=== PATIENT | female | born 1990 | race Two or more races ===

== ENCOUNTER 2016-08-30 11:36 | Emergency (ER) | payer MEDICAID ==
[2016-08-30] MEDS ORDERED: ONDANSETRON DISINTEGRATING 4 MG TAB PO ONE (11:49)
[2016-08-30] MEDS ORDERED: NS 1,000 ML IV ONE ×2 (11:56→12:59)
[2016-08-30] MEDS ORDERED: ONDANSETRON 4 MG/2 ML VIAL IVP ONE (12:16)
[2016-08-30 12:17] VITALS: TEMP 97.5
--- NOTE | 2016-08-30 12:17 | EDPHY ---
H & P Time Seen by Provider: 08/30/16 12:14 HPI/ROS: HPI: 25-year-old female presents to urgent care with the chief concern nausea and vomiting that onset suddenly at 10:00 p.m. last night. Just prior to that she developed sensation of room spinning. This is worse when she turns her head or change positions in bed. Reports associated mild headache. Ate questionable chicken at 2:00 p.m.. This caused her boyfriend to have emesis. She denies fever, chills, URI symptoms, shortness of breath, chest pain, abdominal pain, diarrhea, rash, urinary symptoms. No recent trauma. Takes oral contraceptives and rarely has a period. Has no primary care provider. Denies significant personal or family history. ROS:10 point review of systems is negative other than as stated in HPI Past Medical/Surgical History: Denies Social History: Uses occasional marijuana Smoking Status: Never smoked Physical Exam: Temp 36.0, blood pressure 142/108, 93 pulse, 99% on room air General: Awake, alert, mild distress. No acute distress. Head: Normalocephalic. Atraumatic. EENT: PERRLA. EOMI. No pallor or injection. Anicteric. Mild horizontal nystagmus bilaterally. No injection. TMs intact bilaterally with normal landmarks. No rhinnorhea, nasal passages clear. Oropharynx without redness, exudates, or lesions. Tonsils 2+ bilaterally, no exudates. Neck: Supple, nontender. No lymphadenopathy. Full range of motion. No meningismus. Respiratory: Breathing unlabored. Breath sounds equal bilaterally and clear to auscultation. No adventitious sounds. CV: Chest nontender, atraumatic. Heart rate regular. No murmur, distal pulses 2+ bilaterally. Brisk cap refill all extremities. GI: Abdomen soft, nontender. Bowel sounds normoactive and positive x4 quadrants. : No suprapubic tenderness. No CVA or flank tenderness. Neuro: Alert. Oriented x 3. Speech clear. Nonfocal cranial nerves throughout. Sensation intact all extremities. Skin: Skin warm, dry, intact. No rashes, abrasions, or lacerations. Skin turgor normal. Extremities: Full range of motion in all 4 extremities. Strength 5+ all extremities. Constitutional: Initial Vital Signs Temperature (C) 36.4 C 08/30/16 12:12 Heart Rate 114 H 08/30/16 12:12 Respiratory Rate 18 08/30/16 12:12 Blood Pressure 146/106 H 08/30/16 12:12 O2 Sat (%) 98 08/30/16 12:12 O2 Delivery Mode Room Air Allergies/Adverse Reactions: No Known Allergies Allergy (Unverified 08/30/16 12:14) Home Medications: Medication Instructions Recorded Bcp 08/30/16 Meclizine HCl [Meclizine HCl 25 mg 25 mg PO BID #15 tab 08/30/16 (RX,OTC)] Ondansetron Odt [Zofran Odt 4 mg 4 mg PO Q4 PRN #6 tab 08/30/16 (*)] Medical Decision Making ED Course/Re-evaluation: 25-year-old female presents to urgent care with chief concern nausea and vomiting. Onset suddenly at 10:00 p.m. last night. Just prior to onset she developed vertigo. She is afebrile, nontoxic, has no urinary symptoms. IV started. Normal saline given. 4 mg IV Zofran given. 1355: White count 7250. Glucose 135. Negative HCG. Urinalysis shows 1+ blood , negative nitrate, negative esterase, 0-1 WBCs, trace bacteria, 3+ mucus. No evidence of UTI however culture is pending. After 2 L normal saline, 4 mg IV Zofran, 12.5 mg IV Phenergan, nausea significantly improved. Patient reports ongoing mild vertiginous symptoms when she turns her head or her eyes. I have prescribed meclizine, Zofran, and advised her to use Benadryl. I have discussed the Reina Hallpike/Fallon maneuver and referred her to ENT for follow-up , as well as given her referral for primary care she does not have a primary care provider. She understands that if the symptoms do not significantly improve within the next 2-3 days, she should follow up without fail. Differential Diagnosis: Differential diagnosis includes but is not limited to food poisoning, central versus peripheral vertigo, gastroenteritis, dyspepsia, UTI - Data Points Laboratory Results: Laboratory Results 08/30/16 12:23 08/30/16 12:23 08/30/16 12:23 WBC 7.25 10^3/uL (3.80-9.50) RBC 5.48 H 10^6/uL (4.18-5.33) Hgb 17.2 H g/dL (12.6-16.3) Hct 50.3 H % (38.0-47.0) MCV 91.8 fL (81.5-99.8) MCH 31.4 pg (27.9-34.1) MCHC 34.2 g/dL (32.4-36.7) RDW 11.9 % (11.5-15.2) Plt Count 268 10^3/uL (150-400) MPV 10.4 fL (8.7-11.7) Neut % (Auto) 68.7 % (39.3-74.2) Lymph % (Auto) 27.4 % (15.0-45.0) Alexander % (Auto) 3.6 L % (4.5-13.0) Eos % (Auto) 0.1 L % (0.6-7.6) Baso % (Auto) 0.1 L % (0.3-1.7) Nucleat RBC Rel Count 0.0 % (0.0-0.2) Absolute Neuts (auto) 4.97 10^3/uL (1.70-6.50) Absolute Lymphs (auto) 1.99 10^3/uL (1.00-3.00) Absolute Monos (auto) 0.26 L 10^3/uL (0.30-0.80) Absolute Eos (auto) 0.01 L 10^3/uL (0.03-0.40) Absolute Basos (auto) 0.01 L 10^3/uL (0.02-0.10) Absolute Nucleated RBC 0.00 10^3/uL (0-0.01) Immature Gran % 0.1 % (0.0-1.1) Immature Gran # 0.01 10^3/uL (0.00-0.10) Sodium 143 mEq/L (134-144) Potassium 3.9 mEq/L (3.5-5.2) Chloride 102 mEq/L (97-110) Carbon Dioxide 24 mEq/l (22-31) Anion Gap 17 mEq/L (8-16) BUN 14 mg/dL (7-23) Creatinine 0.9 mg/dL (0.6-1.0) Estimated GFR > 60 Glucose 135 H mg/dL (70-100) Calcium 10.2 mg/dL (8.5-10.4) Total Bilirubin 0.9 mg/dL (0.1-1.4) Conjugated Bilirubin 0.3 mg/dL (0.0-0.5) Unconjugated Bilirubin 0.6 mg/dL (0.0-1.1) AST 33 IU/L (14-46) ALT 41 IU/L (9-52) Alkaline Phosphatase 61 IU/L (38-126) Total Protein 8.6 H g/dL (6.3-8.2) Albumin 5.1 H g/dL (3.5-5.0) Lipase 130.0 IU/L (23-300) Beta HCG, Qual NEGATIVE Urine Color YELLOW Urine Appearance CLEAR Urine pH 8.0 H (5.0-7.5) Ur Specific [place] 1.020 (1.002-1.030) Urine Protein 1+ H (NEGATIVE) Urine Ketones 3+ H (NEGATIVE) Urine Blood 1+ H (NEGATIVE) Urine Nitrate NEGATIVE (NEGATIVE) Urine Bilirubin NEGATIVE (NEGATIVE) Urine Urobilinogen 0.2 EU (0.2-1.0) Ur Leukocyte Esterase NEGATIVE (NEGATIVE) Urine RBC 1-3 /hpf (0-3) Urine WBC 0-1 /hpf (0-3) Ur Epithelial Cells 1+ /lpf (NONE-1+) Amorphous Sediment 1+ /hpf (NONE-1+) Urine Bacteria TRACE H /hpf (NONE SEEN) Urine Mucus 3+ H /lpf (NONE-1+) Ur Culture Indicated? NOT INDICATED (NI) Urine Glucose NEGATIVE (NEGATIVE) Medications Given: Discontinued Medications Diphenhydramine HCl (Benadryl Injection) 25 mg IVP EDNOW ONE Stop: 08/30/16 14:22 Last Admin: 08/30/16 14:25 Dose: 25 mg Sodium Chloride (Ns) 1,000 mls @ 0 mls/hr IV ONCE ONE PRN Reason: Wide Open Stop: 08/30/16 11:57 Last Admin: 08/30/16 12:25 Dose: 1,000 mls Sodium Chloride (Ns) 1,000 mls @ 0 mls/hr IV ONCE ONE PRN Reason: Wide Open Stop: 08/30/16 13:00 Last Admin: 08/30/16 13:12 Dose: 1,000 mls Meclizine HCl (Meclizine Hcl) 25 mg PO EDNOW ONE Stop: 08/30/16 12:21 Last Admin: 08/30/16 14:00 Dose: 25 mg Ondansetron HCl (Zofran Odt) 4 mg PO EDNOW ONE Stop: 08/30/16 11:50 Last Admin: 08/30/16 11:51 Dose: 4 mg Ondansetron HCl (Zofran) 4 mg IVP EDNOW ONE Stop: 08/30/16 12:17 Last Admin: 08/30/16 12:35 Dose: 4 mg Promethazine HCl (Phenergan Injection) 12.5 mg IVP ONCE ONE Stop: 08/30/16 12:58 Last Admin: 08/30/16 13:13 Dose: 12.5 mg Departure - Departure Disposition: Home, Routine, Self-Care Clinical Impression: Nausea & vomiting Qualifiers: Vomiting type: unspecified Vomiting Intractability: non-intractable Qualifier Code: (R11.2) Nausea with vomiting, unspecified Benign paroxysmal positional vertigo Qualifiers: Laterality: unspecified laterality Qualifier Code: (H81.10) Benign paroxysmal vertigo, unspecified ear Condition: Good Instructions: Acute Nausea and Vomiting (ED), Benign Paroxysmal Positional Vertigo (ED) Additional Instructions: Plan: 25 mg meclizine every 8 hours for room spinning 25-50 mg Benadryl every 6 hours as needed Follow up with ENT Dr. Reji Macias as discussed for Reina Hallpike/ Fallon maneuver --When you call to schedule appointment, please let the office know you are an "ER follow up" appointment" I have also given you a referral for primary care should symptoms not improve, if symptoms do not improve within the next 5 days you will need prompt the follow-up and further evaluation, call DR. Martinez--When you call to schedule appointment, please let the office know you are an "ER follow up" appointment" For worsening symptoms despite treatment plan, please return for recheck or go to emergency department Referrals: NONE *PRIMARY CARE P,. [Primary Care Provider] - As per Instructions Leon Macias MD [Medical Doctor] - As per Instructions Nicole Martinez MD [Medical Doctor] - As per Instructions Prescriptions: Meclizine HCl [Meclizine HCl 25 mg (RX,OTC)] 25 mg PO BID #15 tab Ondansetron Odt [Zofran Odt 4 mg (*)] 4 mg PO Q4 PRN #6 tab PRN Reason: nausea
[2016-08-30] MEDS ORDERED: MECLIZINE HCL 25 MG TAB PO ONE (12:20)
[2016-08-30 12:36] LABS: % IMMATURE GRANULYOCYTES 0.1 % (0.0-1.1); ABSOLUTE IMMATURE GRANULOCYTES 0.01 10^3/uL (0.00-0.10); ADD DIFF? NO; ADD MORPH? NO; ADD SCAN? NO; ATYPICAL LYMPHOCYTE FLAG 20 (0-99); FRAGMENT RBC FLAG 0 (0-99); HEMATOCRIT 50.3 % (38.0-47.0); HEMOGLOBIN 17.2 g/dL (12.6-16.3); LEFT SHIFT FLG 0 (0-99); LIPEMIA HEMOLYSIS FLAG 90 (0-99); MEAN CELL HEMOGLOBIN 31.4 pg (27.9-34.1); MEAN CELL HEMOGLOBIN CONCENTR. 34.2 g/dL (32.4-36.7); MEAN CELL VOLUME 91.8 fL (81.5-99.8); MEAN PLATELET VOLUME 10.4 fL (8.7-11.7); PLATELET CLUMPS FLAG 0 (0-99); PLATELET COUNT 268 10^3/uL (150-400); RED BLOOD CELL COUNT 5.48 10^6/uL (4.18-5.33); RED CELL DISTRIBUTION WIDTH 11.9 % (11.5-15.2)
[2016-08-30 12:37] LABS: COLOR YELLOW; LEUKOCYTE ESTERASE,URINE NEGATIVE (NEGATIVE); NITRITE,URINE NEGATIVE (NEGATIVE)
[2016-08-30 12:39] VITALS: RESP 16
[2016-08-30 12:50] LABS: BILIRUBIN,TOTAL 0.9 mg/dL (0.1-1.4); CARBON DIOXIDE 24 mEq/l (22-31); CREATININE 0.9 mg/dL (0.6-1.0); GLOMERULAR FILTRATION RATE > 60; GLUCOSE 135 mg/dL (70-100); MUCUS 3+ /lpf (NONE-1+); TOTAL PROTEIN 8.6 g/dL (6.3-8.2)
[2016-08-30 12:52] LABS: AMORPHOUS 1+ /hpf (NONE-1+); BACTERIA TRACE /hpf (NONE SEEN); WBC,URINE 0-1 /hpf (0-3)
[2016-08-30 12:55] LABS: ALANINE AMINOTRANSFERASE 41 IU/L (9-52); ALBUMIN 5.1 g/dL (3.5-5.0); ALKALINE PHOSPHATASE 61 IU/L (38-126); ANION GAP 17 mEq/L (8-16); ASPARTATE AMINOTRANSFERASE 33 IU/L (14-46); BILIRUBIN-CONJUGATED 0.3 mg/dL (0.0-0.5); BILIRUBIN-UNCONJUGATED 0.6 mg/dL (0.0-1.1); CALCIUM 10.2 mg/dL (8.5-10.4); CHLORIDE 102 mEq/L (97-110); POTASSIUM 3.9 mEq/L (3.5-5.2); SODIUM 143 mEq/L (134-144)
[2016-08-30] MEDS ORDERED: PROMETHAZINE HCL 25 MG/ML VIAL IVP ONE (12:57)
[2016-08-30] MEDS ORDERED: NS 100 ML BAG IV ONE (13:05)
[2016-08-30 14:36] VITALS: BP 120/82; PULSE 70; O2SAT 97
== END 2016-08-30 14:32 | disposition home or self-care (01) ==
LOC: CED 11:36
DX: R11.2 Nausea with vomiting, unspecified (principal); H81.10 Benign paroxysmal vertigo, unspecified ear
CPT/HCPCS: 80048-PO; 80076-PO; 81003-PO; 81015-PO; 83690-PO; 84703-PO; 85025-PO; 96361-PO; 96374-PO; 96375-PO; G0463-PO; J2405; J2550